=== PATIENT | female | born 1950 | race Caucasian/White ===

== ENCOUNTER 2023-04-27 15:10 | Outpatient (CLI) | payer MEDICARE, BC | END 2023-04-27 15:11 | disposition home or self-care (01) | LOC: CSHULT 15:10 | PROVIDERS: ATTEND Family Medicine | DX: R94.6 Abnormal results of thyroid function studies (principal); E07.9 Disorder of thyroid, unspecified | CPT/HCPCS: 76536 ==

== ENCOUNTER 2023-08-03 08:32 | Outpatient (CLI) | payer MEDICARE, BC ==
[2023-08-03] MEDS ORDERED: Iopamidol 300 61% 100 ML VIAL FS ONE (11:57)
== END 2023-08-03 08:33 | disposition home or self-care (01) ==
LOC: CSHCT 08:32
PROVIDERS: ATTEND Family Medicine
DX: K86.2 Cyst of pancreas (principal); R91.1 Solitary pulmonary nodule; K59.00 Constipation, unspecified
CPT/HCPCS: 74177

== ENCOUNTER 2023-08-24 09:21 | Outpatient (CLI) | payer MEDICARE, BC | END 2023-08-24 09:22 | disposition home or self-care (01) | LOC: CSHCT 09:21 | PROVIDERS: ATTEND Family Medicine | DX: E03.9 Hypothyroidism, unspecified (principal); M48.02 Spinal stenosis, cervical region | CPT/HCPCS: 70491; 82565 ==